=== PATIENT | female | born 1995 | race American Indian/Alaskan Native ===

== ENCOUNTER 2017-02-19 22:44 | Emergency (ER) | payer MEDICAID ==
--- NOTE | 2017-02-19 23:41 | Emergency Department Report ---
HPI - General Chief Complaint: Vaginal Bleeding Time Seen by Provider: 02/19/17 23:21 - HPI HPI: Room 36 The patient is a 21-year-old female presenting with a chief complaint of vaginal bleeding. The patient states she is approximately 9 weeks gestational age and her [employer] is a [facility]. The patient states today she developed vaginal bleeding and went to [facility] and was diagnosed with demise. The patient states she was instructed to return if the bleeding continues or she develops pain. Patient states she developed more vaginal bleeding and passing clots. Patient denies passage of tissue. Patient states she chose to come to [facility] Location: Pelvis Duration: 1 day Quality: Cramping Severity: Moderate Modifying factors: [see above] Context: [see above] Mode of transportation: [not driving] ED Past Medical Hx - Past Medical History Previous Medical History?: Yes Additional medical history: Ovarian cyst - Surgical History Past Surgical History?: No - Family History Family history: no significant - Social History Smoking Status: Never Smoker Substance Use Type: None (denies illicit drug use) - Medications Home Medications: Home Medications Medication Instructions Recorded Confirmed Last Taken Type Acetaminophen/Codeine [Tylenol 1 tab PO Q6H PRN 02/19/17 02/19/17 Unknown History /Codeine # 3 tab] Amoxicillin 1 cap PO Q6HR 02/19/17 02/19/17 Unknown History Ibuprofen [Motrin 800 MG tab] 800 mg PO Q8HR PRN #20 tablet 02/20/17 Unknown Rx Methylergonovine [Methergine] 0.2 mg PO Q6H #4 tablet 02/20/17 Unknown Rx ED Review of Systems ROS: Stated complaint: VAG BLEED Other details as noted in HPI Comment: All other systems reviewed and negative Constitutional: denies: chills, fever Eyes: denies: eye pain, eye discharge, vision change ENT: denies: ear pain, throat pain Respiratory: denies: cough, shortness of breath, wheezing Cardiovascular: denies: chest pain, palpitations Endocrine: no symptoms reported Gastrointestinal: abdominal pain Genitourinary: abnormal menses Musculoskeletal: denies: back pain, joint swelling, arthralgia Skin: denies: rash, lesions Neurological: denies: headache, weakness, paresthesias Psychiatric: denies: anxiety, depression Hematological/Lymphatic: denies: easy bleeding, easy bruising Physical Exam - Physical Exam Vital Signs: Vital Signs 02/19/17 02/19/17 22:55 23:12 Temperature 98.5 F Pulse Rate 71 Respiratory 18 18 Rate Blood Pressure 104/68 O2 Sat by Pulse 100 100 Oximetry Physical Exam: GENERAL: The patient is well-developed well-nourished female lying on stretcher not appearing to be in acute distress. [] HEENT: Normocephalic. Atraumatic. Extraocular motions are intact. Patient has moist mucous membranes. NECK: Supple. No meningitic signs are noted. There is no adenopathy noted. CHEST/LUNGS: Clear to auscultation. There is no respiratory distress noted. HEART/CARDIOVASCULAR: Regular. There is no tachycardia. There is no gallop rub or murmur. ABDOMEN: Abdomen is soft, nontender. Patient has normal bowel sounds. There is no abdominal distention. SKIN: There is no rash. There is no edema. There is no diaphoresis. NEURO: The patient is awake, alert, and oriented. The patient is cooperative. The patient has normal speech MUSCULOSKELETAL: There is no evidence of acute injury. PELVIC: Moderate amount of blood in the vault. There appears to be a string of tissue emanating from the cervical os ED Course Vital Signs 02/19/17 02/19/17 22:55 23:12 Temperature 98.5 F Pulse Rate 71 Respiratory 18 18 Rate Blood Pressure 104/68 O2 Sat by Pulse 100 100 Oximetry - Consultations Consultation #1: 02/20/17 03:29 QU[employer]IENT[employer] paged 02/20/17 05:06 Dr Lagos has seen and evaluated pt. States may go home with Rx for methergine and Ibuprofen ED Medical Decision Making - Lab Data Result diagrams: 02/19/17 23:25 Laboratory Tests 02/19/17 02/19/17 02/19/17 23:25 23:25 23:25 WBC 10.6 RBC 3.93 Hgb 11.8 Hct 35.3 MCV 90 MCH 30 MCHC 34 RDW 14.9 Plt Count 318 Lymph % (Auto) 21.7 Barry % (Auto) 5.5 Eos % (Auto) 0.4 Baso % (Auto) 0.6 Lymph # 2.3 Barry # 0.6 Eos # 0.0 Baso # 0.1 Seg Neutrophils % 71.8 H Seg Neutrophils # 7.6 HCG, Quant 9236 H Urine Color Urine Turbidity Urine pH Ur Specific [place] Urine Protein Urine Glucose (UA) Urine Ketones Urine Blood Urine Nitrite Urine Bilirubin Urine Urobilinogen Ur Leukocyte Esterase Urine WBC (Auto) Urine RBC (Auto) U Epithel Cells (Auto) Hyaline Casts Urine Mucus Blood Type B POSITIVE Antibody Screen Negative 02/19/17 23:41 WBC RBC Hgb Hct MCV MCH MCHC RDW Plt Count Lymph % (Auto) Barry % (Auto) Eos % (Auto) Baso % (Auto) Lymph # Barry # Eos # Baso # Seg Neutrophils % Seg Neutrophils # HCG, Quant Urine Color Yellow Urine Turbidity Clear Urine pH 6.0 Ur Specific [place] 1.029 Urine Protein 100 mg/dl Urine Glucose (UA) Neg Urine Ketones 20 Urine Blood Lg Urine Nitrite Neg Urine Bilirubin Neg Urine Urobilinogen < 2.0 Ur Leukocyte Esterase Neg Urine WBC (Auto) 4.0 Urine RBC (Auto) > 182.0 U Epithel Cells (Auto) 1.0 Hyaline Casts 2 Urine Mucus 3+ Blood Type Antibody Screen - Differential Diagnosis demise, threatened , spontaneous , missed Critical care attestation.: If time is entered above; I have spent that time in minutes in the direct care of this critically ill patient, excluding procedure time. ED Disposition Clinical Impression: Spontaneous Disposition: DC- TO HOME OR SELFCARE Is pt being admited?: No Does the pt Need Aspirin: No Condition: Stable Instructions: Spontaneous Miscarriage (ED) Additional Instructions: Return to the emergency department immediately should you develop worsening symptoms, fever, inability to tolerate food or liquid or any other concerns. Prescriptions: Ibuprofen [Motrin 800 MG tab] 800 mg PO Q8HR PRN #20 tablet PRN Reason: Pain Methylergonovine [Methergine] 0.2 mg PO Q6H #4 tablet Referrals: PRIMARY CARE, [Primary Care Provider] - 3-5 Days your, [employer] [employer]ATOR [Other] - [facility] Time of Disposition: 05:06
[2017-02-19 23:56] LABS: Basophils % (Auto) 0.6 % (0.0-1.8); Eosinophils % (Auto) 0.4 % (0.0-4.3); Hematocrit 35.3 % (30.3-42.9); Hemoglobin 11.8 gm/dl (10.1-14.3); Mean Corpuscular HGB Conc 34 % (30-34); Mean Corpuscular Hemoglobin 30 pg (28-32); Mean Corpuscular Volume 90 fl (79-97); Platelet Count 318 K/mm3 (140-440); Red Blood Count 3.93 M/mm3 (3.65-5.03); Red Cell Distribution Width 14.9 % (13.2-15.2); White Blood Count 10.6 K/mm3 (4.5-11.0)
[2017-02-20 00:29] LABS: Bilirubin,Urine NEG (Negative); Blood,Urine LG (Negative); Ketones,Urine 20 mg/dL (Negative); Leukocyte Esterase,Urine NEG (Negative); Mucus,Urine 3+ /HPF; Nitrite,Urine NEG (Negative); Urobilinogen,Urine < 2.0 mg/dL (<2.0)
[2017-02-20 00:34] LABS: RBC,Urine > 182.0 /HPF (0.0-6.0)
--- NOTE | 2017-02-20 03:09 | Ultrasound Report ---
FINAL REPORT EXAM: US OB \T\lt; = 14 WEEKS FETUS HISTORY: vaginal bleeding COMPARISON: None available. TECHNIQUE: Several real-time grayscale and color Doppler images were obtained. Transabdominal and transvaginal exam. FINDINGS: The uterus measures 8.4 x 4.2 x 5.0 centimeters. No definite IUP identified. On the transabdominal exam there is a hypoechoic structure in the uterus which is not identified on transvaginal exam. This is likely artifactual on the transabdominal exam. Endometrial stripe 10 millimeters. There is vascular flow to the bilateral ovaries. The right ovary measures 2.5 x 1.9 x 1.9 centimeters. Left ovary measures 2.5 x 1.7 x 2.2 centimeters. Within the right ovary there is a 2.1 centimeter hypoechoic avascular structure which may reflect corpus luteum. No adnexal masses are demonstrated. No free fluid. IMPRESSION: No IUP or adnexal masses are demonstrated. Correlation with serial beta HCGs and followup exam is suggested. 2.1 centimeter hypoechoic avascular structure in the right ovary which may reflect corpus luteum.
[2017-02-20] MEDS ORDERED: METHERGINE IM ONE (03:32)
--- NOTE | 2017-02-20 05:12 | Consultation ---
History of Present Illness Consult date: 02/20/17 Reason for consult: early problem History of present illness: This is the first for this 21-year-old female who presents to the ER with vaginal bleeding. States her LMP was December 04 or 2016. She was seen at [facility] several weeks ago where she transabdominal ultrasound that apparently was inconclusive. At that time she sits there was no intrauterine seen. She was scheduled for follow-up in February however she had vaginal bleeding started today. He was evaluated at [place] where she was diagnosed with a 9 week demise. She was discharged home however had increased vaginal bleeding and presents to the ER for evaluation Past History Past Medical History: no pertinent history Past Surgical History: no surgical history Medications and Allergies Allergies Allergy/AdvReac Type Severity Reaction Status Date / Time No Known Allergies Allergy Verified 02/19/17 23:01 Home Medications Medication Instructions Recorded Confirmed Last Taken Type Acetaminophen/Codeine [Tylenol 1 tab PO Q6H PRN 02/19/17 02/19/17 Unknown History /Codeine # 3 tab] Amoxicillin 1 cap PO Q6HR 02/19/17 02/19/17 Unknown History Ibuprofen [Motrin 800 MG tab] 800 mg PO Q8HR PRN #20 tablet 02/20/17 Unknown Rx Methylergonovine [Methergine] 0.2 mg PO Q6H #4 tablet 02/20/17 Unknown Rx Review of Systems All systems: negative Genitourinary: vaginal bleeding - Vital Signs Vital signs: Vital Signs Temp Pulse Resp BP Pulse Ox 98.5 F 71 18 104/68 100 02/19/17 22:55 02/19/17 22:55 02/19/17 22:55 02/19/17 22:55 02/19/17 22:55 Temp Pulse Resp BP Pulse Ox 98.5 F 69 16 104/64 100 02/19/17 22:55 02/20/17 02:44 02/20/17 02:44 02/20/17 02:44 02/19/17 23:12 - Physical Exam Breasts: Positive: deferred Lungs: Positive: Normal air movement Genitourinary (Female): Positive: normal external genitalia, normal perenium Vagina: Positive: other (scant blood was noted on the glove during the exam. Active bleeding was visualized from the vagina.) Cervix: Positive: other (cervix was palpated to be closed) Uterus: Positive: other (difficult to palpate due to body habitus) Extremities: Positive: normal Results Result Diagrams: 02/19/17 23:25 Abnormal lab results 02/19/17 02/19/17 Range/Units 23:25 23:25 Seg Neutrophils % 71.8 H (40.0-70.0) % HCG, Quant 9236 H (0-4) mIU/mL All other labs normal. CT scan - pelvis: report reviewed, image reviewed Assessment and Plan - Patient Problems (1) Spontaneous Current Visit: Yes Status: Acute Plan to address problem: Precautions were given. She is instructed to follow what with [facility] today. She is discharged home on Methergine for 24 hours and Motrin as needed.
[2017-02-20 05:37] VITALS: BP 123/81
== END 2017-02-20 05:44 | disposition home or self-care (01) ==
LOC: ED 22:44
DX: O03.9 Complete or unspecified spontaneous abortion without complication (principal); Z3A.09 9 weeks gestation of pregnancy
CPT/HCPCS: 36415; 76801; 76817; 81001; 84702; 85025; 86850; 86900; 86901; 88305; 96372; 99284; J2210

== ENCOUNTER 2020-03-29 15:48 | Emergency (ER) | payer OTHER ==
[2020-03-29 16:20] VITALS: BP 125/77
--- NOTE | 2020-03-29 17:34 | Emergency Department Report ---
ED General Adult HPI - General Chief complaint: Dental/Oral Stated complaint: SWOLLEN MOUTH Time Seen by Provider: 03/29/20 17:09 Source: patient Mode of arrival: Ambulatory Limitations: No Limitations - History of Present Illness Initial comments: 24-year-old -[place] female patient presents with complaints of left upper dental pain x 1 week. Patient states she has had a broken tooth in the area for years and has had recurrent infections in the area. She reports she called her dentist, however they were not able to see her today. She rates her pain as a 10/10 in severity and denies any fever/chills/sweats, difficulty swallowing, or facial redness. She does report some mild swelling to the left side of the face. Severity scale (0 -10): 8 - Related Data Home Medications Medication Instructions Recorded Confirmed Last Taken Acetaminophen/Codeine [Tylenol 1 tab PO Q6H PRN 02/19/17 02/19/17 Unknown /Codeine # 3 tab] Amoxicillin 1 cap PO Q6HR 02/19/17 02/19/17 Unknown Previous Rx's Medication Instructions Recorded Last Taken Type Ibuprofen [Motrin 800 MG tab] 800 mg PO Q8HR PRN #20 tablet 02/20/17 Unknown Rx Methylergonovine [Methergine] 0.2 mg PO Q6H #4 tablet 02/20/17 Unknown Rx Acetaminophen [Tylenol] 650 mg PO QID PRN #30 capsule 04/18/18 Unknown Rx Sulfamethoxazole/Trimethoprim 1 each PO BID #14 tablet 03/12/19 Unknown Rx [Bactrim DS TAB] Acetaminophen/Codeine [Tylenol 1 tab PO Q6H PRN #12 tab 03/29/20 Unknown Rx /Codeine # 3 tab] Clindamycin [Clindamycin CAP] 300 mg PO Q6H 10 Days #40 capsule 03/29/20 Unknown Rx Allergies Allergy/AdvReac Type Severity Reaction Status Date / Time No Known Allergies Allergy Verified 04/18/18 18:02 ED Review of Systems ROS: Stated complaint: SWOLLEN MOUTH Other details as noted in HPI Constitutional: denies: chills, diaphoresis, fever, malaise, weakness ENT: dental pain. denies: ear pain, throat pain Respiratory: denies: cough, shortness of breath Skin: denies: rash, lesions, change in color Neurological: denies: headache Hematological/Lymphatic: denies: swollen glands ED Past Medical Hx - Past Medical History Previous Medical History?: Yes Additional medical history: Ovarian cyst - Surgical History Past Surgical History?: No - Social History Smoking Status: Never Smoker Substance Use Type: None - Medications Home Medications: Home Medications Medication Instructions Recorded Confirmed Last Taken Type Acetaminophen/Codeine [Tylenol 1 tab PO Q6H PRN 02/19/17 02/19/17 Unknown History /Codeine # 3 tab] Amoxicillin 1 cap PO Q6HR 02/19/17 02/19/17 Unknown History Ibuprofen [Motrin 800 MG tab] 800 mg PO Q8HR PRN #20 tablet 02/20/17 Unknown Rx Methylergonovine [Methergine] 0.2 mg PO Q6H #4 tablet 02/20/17 Unknown Rx Acetaminophen [Tylenol] 650 mg PO QID PRN #30 capsule 04/18/18 Unknown Rx Sulfamethoxazole/Trimethoprim 1 each PO BID #14 tablet 03/12/19 Unknown Rx [Bactrim DS TAB] Acetaminophen/Codeine [Tylenol 1 tab PO Q6H PRN #12 tab 03/29/20 Unknown Rx /Codeine # 3 tab] Clindamycin [Clindamycin CAP] 300 mg PO Q6H 10 Days #40 capsule 03/29/20 Unknown Rx ED Physical Exam - General Limitations: No Limitations General appearance: alert, in no apparent distress - Head Head exam: Present: atraumatic, normocephalic - Eye Eye exam: Present: normal appearance - ENT ENT exam: Present: mucous membranes moist - Expanded ENT Exam Expanded Mouth exam: Absent: drooling, trismus, muffled voice Teeth exam: Present: dental caries, fractured tooth #, dental tenderness # (No obvious abscess noted), other (Mild swelling noted to left cheek without overlying erythema) 1 - Fractured, Dental Tenderness Throat exam: Negative: tonsillar erythema, tonsillomegaly, tonsillar exudate, R peritonsillar mass, L peritonsillar mass - Neck Neck exam: Present: normal inspection - Respiratory Respiratory exam: Present: normal lung sounds bilaterally. Absent: respiratory distress - Cardiovascular Cardiovascular Exam: Present: regular rate, normal rhythm - Neurological Exam Neurological exam: Present: alert, oriented X3 - Psychiatric Psychiatric exam: Present: normal affect, normal mood - Skin Skin exam: Present: warm, dry, intact, normal color. Absent: rash, cyanosis, e rythema, ecchymosis ED Course Vital Signs 03/29/20 16:17 Temperature 99.1 F Pulse Rate 74 Respiratory 18 Rate Blood Pressure 125/77 [Right] O2 Sat by Pulse 98 Oximetry ED Medical Decision Making - Medical Decision Making 24-year-old -[place] female patient presents with complaints of left upper dental pain x 1 week. Patient states she has had a broken tooth in the area for years and has had recurrent infections in the area. She reports she called her dentist, however they were not able to see her today. She rates her pain as a 10/10 in severity and denies any fever/chills/sweats, difficulty swallowing, or facial redness. She does report some mild swelling to the left side of the face. Fracture tooth noted with significant dental decay and tenderness to palpation. No obvious abscess noted. Patient does not have trismus or drooling on exam. Her vitals are normal she is well-appearing. She is stable for discharge home and follow-up with her dentist. Prescription for clindamycin given. Strict return precautions were discussed in detail with patient who verbalized understanding. Critical care attestation.: If time is entered above; I have spent that time in minutes in the direct care of this critically ill patient, excluding procedure time. ED Disposition Clinical Impression: Dental infection Disposition: - TO HOME OR SELFCARE Is pt being admited?: No Condition: Stable Instructions: Toothache (ED), Dental Abscess (ED) Additional Instructions: Please follow-up with your dental specialist within 24 to 48 hours Prescriptions: Clindamycin [Clindamycin CAP] 300 mg PO Q6H 10 Days #40 capsule Acetaminophen/Codeine [Tylenol /Codeine # 3 tab] 1 tab PO Q6H PRN #12 tab PRN Reason: Pain , Severe (7-10)
== END 2020-03-29 17:30 | disposition home or self-care (01) ==
LOC: ED 15:48
DX: K04.7 Periapical abscess without sinus (principal); Z79.899 Other long term (current) drug therapy
CPT/HCPCS: 99282